=== PATIENT | female | born 1995 | race Caucasian/White ===

== ENCOUNTER 2020-03-07 19:21 | Emergency (ER) | payer OTHER ==
[2020-03-07 19:27] VITALS: TEMP 97; BMI 26.0
[2020-03-07] MEDS ORDERED: ACETAMINOPHEN 500 MG TABLET (FP) PO ONE (19:52)
--- NOTE | 2020-03-07 19:54 | PDOC ---
History of Present Illness - General History Source: Patient - History of Present Illness Timing/Duration: reports: other (yesterday) Quality: reports: moderate <David Trejo - Last Filed: 03/07/20 20:31> <Marivel Silverman Judy - Last Filed: 03/07/20 22:05> - General Chief Complaint: Pain Stated Complaint: ABD PAIN Time Seen by Provider: 03/07/20 19:42 Past History - Medical History COPD: No - Reproductive History Is Patient Now?: Yes - Psycho-Social/Smoking History Smoking History: Never smoked <David Trejo - Last Filed: 03/07/20 20:31> <Marivel Silverman - Last Filed: 03/07/20 22:05> - Medical History Allergies/Adverse Reactions: Allergies Allergy/AdvReac Type Severity Reaction Status Date / Time No Known Allergies Allergy Verified 03/07/20 19:27 Review of Systems - Review of Systems Constitutional: No: Chills, Fever ABD/GI: Yes: Abdominal cramping. No: Nausea, Vomiting : No: Dysuria, Flank Pain <David Trejo - Last Filed: 03/07/20 20:31> *Physical Exam - Vital Signs Last Vital Signs Temp Pulse Resp BP Pulse Ox 97 F L 85 18 106/52 L 100 03/07/20 19:23 03/07/20 19:23 03/07/20 19:23 03/07/20 19:23 03/07/20 19:23 - Physical Exam General Appearance: Yes: Appropriately Dressed, Mild Distress HEENT: positive: Normal Voice Neck: positive: Supple Respiratory/Chest: negative: Respiratory Distress Gastrointestinal/Abdominal: positive: Normal Bowel Sounds, Tender (poorly localized ttp to lower abd, NT over mcburneys), Soft. negative: Distended Musculoskeletal: negative: CVA Tenderness Integumentary: positive: Dry, Warm Neurologic: positive: Fully Oriented, Alert, Normal Mood/Affect <David Trejo - Last Filed: 03/07/20 20:31> - Vital Signs Last Vital Signs Temp Pulse Resp BP Pulse Ox 97 F L 85 18 106/52 L 100 03/07/20 19:23 03/07/20 19:23 03/07/20 19:23 03/07/20 19:23 03/07/20 19:23 <Marivel Silverman - Last Filed: 03/07/20 22:05> ED Treatment Course - RADIOLOGY Radiology Studies Ordered: Category Date Time Status TRANSVAGINAL US PREG [US] Stat Ultrasound 03/07/20 19:42 Ordered <David Trejo - Last Filed: 03/07/20 20:31> Medical Decision Making - Medical Decision Making 03/07/20 19:50 24 yo F, , tested + on home preg test yesterday, unsure how far along as irregular menses and last menses 01/18, here w/ lower abd cramps since last night, worsening today. No vag bleed, dysuria, n/v/f/c see exam 1st trimester pain R/o ectopic vs abd pain in nl , r/o UTI -ua/ucx -beta -US 03/07/20 20:[address] Silverman at this time <David Trejo - Last Filed: 03/07/20 20:31> - Medical Decision Making The patient was seen and evaluated in conjunction with midlevel provider under my direct supervision, ancillary studies were reviewed. I agree with the plan as outlined with DONALD Trejo. HPI, workup/dispo as outlined. VS reviewed, wnl. beta hcg 955, below discriminatory zone repeat beta in 2 days UA with some ketones, but does not appear dehydrated, donny PO intake. f/u urine culture prelim neg for infection TVUS to eval - early IUP, PUL? miscarriage? no bleeding, no txs or labs indicated discussed with patient the results, possibility of early vs ectopic vs PUL and follow up for beta check in 2-3 days. anticipate discharge, followup in 2 days for beta check, return precautions such as bleeding pt verbalized understanding of impression and plan 03/07/20 20:24 03/07/20 21:25 03/07/20 21:25 03/07/20 21:55 03/07/20 22:05 <Marivel Silverman - Last Filed: 03/07/20 22:05> Discharge <David Trejo - Last Filed: 03/07/20 20:31> - Discharge Information Problems reviewed: Yes - Admission No <Marivel Silverman - Last Filed: 03/07/20 22:05> - Discharge Information Clinical Impression/Diagnosis: Abdominal pain affecting Condition: Improved Disposition: HOME - Follow up/Referral [facility]errals: [facility] [Provider Group] Sandra De La Rosa MD [Staff Physician] - Lucie Chen MD [Staff Physician] - - Patient Discharge Instructions Patient Printed Discharge Instructions: DI for Abdominal Pain -- Early Additional Instructions: 1) Please follow-up with your primary care doctor in the next 1-2 days. Please call tomorrow for for any urgent issues. 2) You were given a copy of the tests performed today. Please bring the results with you and review them with your primary care doctor. Your laboratory / imaging results showed beta hcg (your number) at 955, this needs to rechecked in 2-3 days, you can go to welder/fitter or come to the ED Your ultrasound showed unknown location of /no definitive seen at this time but this is also potentially a very early . you need a beta check in 2-3 days to see where that is trending. 3) If you have any worsening of symptoms or any other concerns please return to the ED immediately. Return if worsening symptoms including fevers, headache, vomiting, visual or hearing disturbances, abdominal pain, vaginal bleeding, chest pain, shortness of breath, syncope, dehydration, inability to take things by mouth/vomiting, altered mental status, or worsening concerning symptoms. 4) Please continue taking your home medications as directed. follow up your urine culture for any infection no antibiotics indicated at this time Stay well hydrated and rest adequately. Make an appointment. If you cannot follow-up with your primary care doctor please return to the ED - Post Discharge Activity Work/Back to School Note: Back to Work
[2020-03-07] MEDS ORDERED: ACETAMINOPHEN 500 MG TABLET (FP) ONE (20:30)
[2020-03-07 20:34] LABS: PH,URINE 6.5 (5.0-8.0); URINE APPEARANCE CLEAR; URINE BILIRUBIN NEGATIVE (NEGATIVE); URINE COLOR YELLOW; URINE GLUCOSE (UA) NEGATIVE (NEGATIVE); URINE KETONE 4+ (NEGATIVE); URINE LEUK ESTERASE NEGATIVE (NEGATIVE); URINE NITRITE NEGATIVE (NEGATIVE); URINE PROTEIN TRACE (NEGATIVE)
[2020-03-07 20:50] LABS: HCG,QUALITATIVE URINE Positive
[2020-03-07 22:10] VITALS: BP 110/65; PULSE 86
== END 2020-03-07 22:13 | disposition home or self-care (01) ==
LOC: JER 19:21
DX: O26.899 Other specified pregnancy related conditions, unspecified trimester (principal); R10.9 Unspecified abdominal pain; Z3A.00 Weeks of gestation of pregnancy not specified
CPT/HCPCS: 36415; 76817-TC; 81003; 84702; 84703; 87086; 99285-25

== ENCOUNTER 2020-03-11 09:09 | Emergency (ER) | payer OTHER ==
[2020-03-11 09:16] VITALS: BP 100/48; PULSE 75; TEMP 98.1; BMI 24.0
--- NOTE | 2020-03-11 11:19 | PDOC ---
History of Present Illness - General Chief Complaint: Revisit, Lab Variance Stated Complaint: ABNORMAL LABS Time Seen by Provider: 03/11/20 09:29 History Source: Patient Exam Limitations: No Limitations - History of Present Illness Initial Comments: 03/11/20 11:14 Patient is a 24-year-old female who presents to the ED for a repeat beta-hCG after being seen in the emergency department on 03/07/2020 for lower abdominal pain and . The patient states that she has irregular periods and is unsure of when she got . There was an ultrasound performed on 03/07/2020 which did not see an IUP but was likely early . The patient has not had any vaginal bleeding. She states her lower abdominal pain has mostly resolved but she still feels slight pain. She states she has a follow-up TECHNOLOGY AUDITOR appointment on 03/20/2020. She denies any new complaints at this time. Past History - Medical History Allergies/Adverse Reactions: Allergies Allergy/AdvReac Type Severity Reaction Status Date / Time No Known Allergies Allergy Verified 03/11/20 09:13 COPD: No - Reproductive History Is Patient Now?: Yes - Immunization History Immunization Up to Date: No - Psycho-Social/Smoking History Smoking History: Former smoker Have you smoked in the past 12 months: Yes Information on smoking cessation initiated: No - Substance Abuse Hx (Audit-C & DAST Scrn) How often the patient has a drink containing alcohol: Never Score: In Men: 4 or > Positive; In Women: 3 or > Positive: 0 Screen Result (Pos requires Nsg. Audit-10AR): Negative In the last yr the pt used illegal drug/Rx for NonMed reason: No Score: Yes response is considered Positive: 0 Screen Result (Positive result requires Nsg. DAST-10): Negative Review of Systems - Review of Systems Comments:: 03/11/20 11:15 - Review of Systems Able to Perform ROS?: Yes Constitutional: No: Fever, Chills, Loss of Appetite, Night Sweats, Weakness; positive: Repeat beta-hCG HEENTM: No: Eye Pain, Vision changes, Ear Pain, Throat Pain, Throat Swelling, Mouth Pain, Difficulty Swallowing Respiratory: No: Cough, Shortness of Breath, Wheezing, Sputum Production Cardiac (ROS): No: Chest Pain, Chest Tightness, Palpitations, Irregular Heart Beat, Edema ABD/GI: No: Nausea, Vomiting, Abdominal Pain, Diarrhea : No Dysuria, No Hematuria, No Frequency, No Urgency, No Vaginal Discharge/Pain Musculoskeletal: No: Muscle Pain, Back Pain, Joint Pain, Muscle Weakness, Neck Pain Integumentary: No: Lesions, Rash Neurological: No: Headache, Numbness, Tingling, Weakness, Speech Difficulties *Physical Exam - Vital Signs Last Vital Signs Temp Pulse Resp BP Pulse Ox 98.1 F 75 18 100/48 L 100 03/11/20 09:14 03/11/20 09:14 03/11/20 09:14 03/11/20 09:14 03/11/20 09:14 - Physical Exam 03/11/20 11:16 - Physical Exam General Appearance: Nourished, Appropriately Dressed, No Distress HEENT: EOMI, Normal Voice, Hearing Grossly Normal Neck: Supple, No Lymphadenopathy (R), No Lymphadenopathy (L), No Rigidity, No Decreased range of motion Respiratory/Chest: Lungs Clear, Normal Breath Sounds. No Respiratory Distress, No Accessory Muscle Use Cardiovascular: Regular Rhythm, Regular Rate, S1, S2 Gastrointestinal/Abdominal: Normal Bowel Sounds, Soft. Non-tender, No Guarding, No Rebound, No Rigidity; no reproducible abdominal tenderness to palpation LUMBER STRAIGHTENER: Deferred as per patient request Musculoskeletal: Normal Inspection. No Decreased Range of Motion Extremity: Normal Capillary Refill, Normal Inspection Integumentary: Normal Color, Dry. No Rash Neurologic: console operator II-XII NML intact, Fully Oriented, Alert, Normal Mood/Affect, Normal Response ED Treatment Course - ADDITIONAL ORDERS Additional order review: Laboratory Results 03/11/20 09:42 Beta HCG, Quant 2315.6 03/11/20 11:16 Laboratory Tests 03/07/20 03/11/20 20:12 09:42 Beta HCG, Quant 955.3 2315.6 Medical Decision Making - Medical Decision Making 03/11/20 11:16 Assessment: Patient is a 24-year-old female who presents to the ED for a repeat beta-hCG. Plan: The patient has been made aware that her beta-hCG has appropriately gone up to 2304 days. This is slightly more than doubled as expected. The patient has a follow-up appointment with TECHNOLOGY AUDITOR on 03/20/2020 for further evaluation and treatment. She has been given strict return precautions such as severe abdominal pain, heavy vaginal bleeding, passing clots or tissue, or any other concerning symptoms. She understands and agrees with this treatment plan and she is stable for discharge. Discharge - Discharge Information Problems reviewed: Yes Clinical Impression/Diagnosis: Abdominal pain affecting Condition: Stable Disposition: HOME - Follow up/Referral - Patient Discharge Instructions Patient Printed Discharge Instructions: DI for Abdominal Pain -- Early Additional Instructions: Get plenty of rest and drink plenty of fluids. You should be on pelvic rest which means no heavy lifting, no strenuous activity and nothing in the vagina including sexual intercourse, tampons, douching until you are cleared by your TECHNOLOGY AUDITOR. Follow-up with your TECHNOLOGY AUDITOR as scheduled on 03/20/2020. Return to the emergency department for worsening abdominal pain, vaginal bleeding, passing blood clots or tissue, or any other concerning symptoms. - Post Discharge Activity
--- OUTSIDE RECORDS SUMMARY | 2020-03-11 11:50 | XMS ---
:1995 Author Organization [facility] Care Team Providers Name Role Phone U , SHANNAN Eisenberg MD Unavailable Unavailable ELIGIO FREEMAN, Deidra FREEMAN Unavailable Unavailable Re-disclosure Warning The records that you are about to access may contain information from federally- assisted alcohol or drug abuse programs. If such information is present, then the following federally mandated warning applies: This information has been disclosed to you from records protected by federal confidentiality rules (42 CFR part 2). The federal rules prohibit you from making any further disclosure of this information unless further disclosure is expressly permitted by the written consent of the person to whom it pertains or as otherwise permitted by 42 CFR part 2. A general authorization for the release of medical or other information is NOT sufficient for this purpose. The Federal rules restrict any use of the information to criminally investigate or prosecute any alcohol or drug abuse patient.The records that you are about to access may contain highly sensitive health information, the redisclosure of which is protected by Article 27-F of the [facility] Public Health law. If you continue you may haveaccess to information: Regarding HIV / AIDS; Provided by facilities licensed or operated by the [facility] Office of Mental Health; or Provided by the [facility] Office for People With Developmental Disabilities. If such information is present, then the following [facility] mandated warning applies: This information has been disclosed to you from confidential records which are protected by state law. State law prohibits you from making any further disclosure of this information without the specific written consent of the person to whom it pertains, or as otherwise permitted by law. Any unauthorized further disclosure in violation of state law may result in a fine or residential sentence or both. A general authorization for the release of medical or other information is NOT sufficient authorization for further disclosure. Allergies and Adverse Reactions Type Description Substance Reaction Status Data Source(s ) Drug allergy No Known Allergies No Known Allergies [facility] Encounters Encounter Providers Location Date Indications Data Source(s ) Emergency Attender: CONSTANZA 04/04/2019 DIZZY LIGHT HEADED [facility] ELIGIO MDAttender: 09:36:00 PM [facility] SHANNAN Rodrigues MD EDT - of [facility] 04/04/2019 11:45:00 PM EDT DIZZY LIGHT HEADED Patient discharged. Insurance Providers Payer name Policy type Policy ID Covered Covered republican's Policy P maty / Coverage republican ID relationship to Merchant Inf ormation type merchant CDP [id number] SP [id number] 00 [employer]IVERS[employer] CROSS [id number] COMMERCIAL 9 [employer] [id number] Problems, Conditions, and Diagnoses Code Display Name Description Problem Type Effective Dates Data Source(s) Z32.02 Encounter for ENCOUNTER FOR Diagnosis 04/04/2019 [facility] n test, TEST, 09:36:00 PM EDT [facility] result negative RESULT NEGATIVE Hosp ital of [facility] Z52.000 Unspecified UNSPECIFIED Diagnosis 04/04/2019 [facility] donor, whole DONOR, WHOLE 09:36:00 PM EDT [facility] D64.89 Other specified OTHER SPECIFIED Diagnosis 04/04/2019 [facility] udson anemias ANEMIAS 09:36:00 PM EDT [facility] R53.1 Weakness WEAKNESS Diagnosis 04/04/2019 [facility] 09:36:00 PM EDT [facility]
== END 2020-03-11 11:27 | disposition home or self-care (01) ==
LOC: JERFT 09:09
DX: R10.9 Unspecified abdominal pain (principal)
CPT/HCPCS: 36415; 84702; 99283-25

== ENCOUNTER 2020-03-18 00:39 | Emergency (ER) | payer OTHER ==
--- NOTE | 2020-03-18 01:02 | PDOC ---
History of Present Illness - General Chief Complaint: Vaginal Bleeding Stated Complaint: VAGINAL BLEEDING, 4 WKS History Source: Patient - History of Present Illness Initial Comments: 03/18/20 02:18 24 -year-old female complaining of vaginal spotting since this afternoon with left pelvic pain. Patient denies urinary symptoms, abdominal pain, nausea, vomiting, diarrhea, fever/chills. Patient reports that she was seen for similar episode a few weeks ago in this hospital Past History - Medical History Allergies/Adverse Reactions: Allergies Allergy/AdvReac Type Severity Reaction Status Date / Time No Known Allergies Allergy Verified 03/18/20 01:30 Home Medications: Ambulatory Orders Cephalexin Monohydrate [Keflex -] 500 mg PO BID #20 capsule 03/18/20 COPD: No - Immunization History Immunization Up to Date: No - Psycho-Social/Smoking History Smoking History: Former smoker Have you smoked in the past 12 months: Yes Review of Systems - Review of Systems Able to Perform ROS?: Yes Is the patient limited Martiniquais proficient: No : Yes: Other (vaginal bleeding) *Physical Exam - Vital Signs 03/18/20 02:24 Last Vital Signs Temp Pulse Resp BP Pulse Ox 98.1 F 81 18 109/57 L 98 03/18/20 00:40 03/18/20 00:40 03/18/20 00:40 03/18/20 00:40 03/18/20 00:40 - Physical Exam General Appearance: Yes: Appropriately Dressed Respiratory/Chest: positive: Lungs Clear, Normal Breath Sounds Female Pelvic Exam: positive: normal external exam, cervical os closed, other (brown vaginal discharge) Gastrointestinal/Abdominal: positive: Normal Bowel Sounds, Soft. negative: Tender Musculoskeletal: positive: Normal Inspection. negative: CVA Tenderness Extremity: positive: Normal Capillary Refill, Normal Inspection, Normal Range of Motion Integumentary: positive: Normal Color, Dry, Warm Neurologic: positive: Fully Oriented, Alert, Normal Mood/Affect ED Treatment Course - LABORATORY CBC & Chemistry Diagram: 03/18/20 01:47 - RADIOLOGY Radiology Studies Ordered: Category Date Time Status TRANSVAGINAL US PREG [US] Stat Ultrasound 03/18/20 01:01 Ordered ED Progress Note - Progress Note Progress Note: 03/18/20 02:25 A: vaginal bleeding in early threatened Ab; uti P: cbc beta hcg ua tvus type and screen 1 cephalexin Discharge - Discharge Information Problems reviewed: Yes Clinical Impression/Diagnosis: Threatened in early UTI (urinary tract infection) Qualifiers: Urinary tract infection type: acute cystitis Hematuria presence: without hematuria Qualified Code(s): N30.00 - Acute cystitis without hematuria Condition: Fair - Additional Discharge Information Prescriptions: Cephalexin Monohydrate [Keflex -] 500 mg PO BID #20 capsule - Follow up/Referral - Patient Discharge Instructions Patient Printed Discharge Instructions: DI for Vaginal Bleeding Additional Instructions: Return to the ER if you are soaking 2 pads per hour, severe abdominal pain, or worsening symptoms. Increase fluids Please return to emergency department any increased pain, inability to void, i ncreased bleeding, back pain, fever or other concerns. Please follow up at the primary care Dr. symptoms persist in 2 days Take cephalexin as prescribed Drink plenty of fluids follow-up with your DIRECTOR OF COMMUNICATIONS as soon as possible - Post Discharge Activity Work/Back to School Note: Back to Work
--- OUTSIDE RECORDS SUMMARY | 2020-03-18 01:11 | XMS ---
:1995 Author Organization [facility] Care Team Providers Name Role Phone ELIGIO FREEMAN, CONSTANZA Gay MD Unavailable Unavailable U Adithya FREEMAN MD Unavailable Unavailable Re-disclosure Warning The records that [...] is protected by Article 27-F of the [facility] Public Health law. If you continue you may haveaccess to information: Regarding HIV / AIDS; Provided by facilities licensed or operated by the [facility] Office of Mental Health; or Provided by the [facility] Office for People With Developmental Disabilities. If such information is present, then the following [facility] mandated warning applies: This information has [...] law may result in a fine or fdc sentence or both. A general authorization for the release of medical or other information is NOT sufficient authorization for further disclosure. Allergies and Adverse Reactions Type Description Substance Reaction Status Data Source(s ) Drug allergy No Known Allergies No Known Allergies [facility] Encounters Encounter Providers Location Date Indications Data Source(s ) Emergency Attender: CONSTANZA 04/04/2019 DIZZY LIGHT HEADED [facility] ELIGIO MDAttender: 09:36:[address] [facility] SHANNAN Rodrigues MD EDT - [facility] 04/04/2019 11:45:00 PM EDT DIZZY LIGHT HEADED Patient discharged. Insurance Providers Payer name Policy type Policy ID Covered Covered republican's Policy P maty / Coverage republican ID relationship to Merchant Inf ormation type merchnat CDPHP [id number] SP [id number] 00 UNIVERSAL 0 [employer] CROSS [id number] COMMERCIAL 9 [employer] [id number] Problems, Conditions, and Diagnoses Code Display Name Description Problem Type Effective Dates Data Source(s) Z32.02 Encounter for ENCOUNTER FOR Diagnosis 04/04/2019 [facility] [place] [facility] n test, TEST, 09:36:00 PM EDT [facility] result negative RESULT NEGATIVE Hosp ital [facility] Z52.000 Unspecified UNSPECIFIED Diagnosis 04/04/2019 [facility] donor, whole DONOR, WHOLE 09:36:[address] [facility] D64.89 Other specified OTHER SPECIFIED Diagnosis 04/04/2019 [facility] udson anemias ANEMIAS 09:36:00 PM EDT [facility] R53.1 Weakness WEAKNESS Diagnosis 04/04/2019 [facility] 09:36:00 PM EDT [facility]
[2020-03-18 01:30] VITALS: BP 109/57; PULSE 81; TEMP 98.1; BMI 25.7
[2020-03-18 01:59] LABS: EPI CELLS >36 /uL (0-25.1); HYALINE CASTS 14 /uL (0-3.1); PH,URINE 5.5 (5.0-8.0); URINE APPEARANCE CLOUDY; URINE BACTERIA 7709 /uL (0-1359); URINE BILIRUBIN NEGATIVE (NEGATIVE); URINE COLOR YELLOW; URINE GLUCOSE (UA) NEGATIVE (NEGATIVE); URINE KETONE NEGATIVE (NEGATIVE); URINE LEUK ESTERASE 2+ (NEGATIVE); URINE NITRITE NEGATIVE (NEGATIVE); URINE PROTEIN NEGATIVE (NEGATIVE); URINE RBC 22 /uL (0-23.9); URINE UROBILINOGEN 0.2 mg/dL (0.2-1.0); URINE WBC 201 /uL (0-25.8)
[2020-03-18 02:18] LABS: BASO % 0.6 % (0-2.0); EOS % 0.3 % (0-4.5); HEMATOCRIT 37.4 % (32.4-45.2); HEMOGLOBIN 13.3 GM/dL (10.7-15.3); LYMPH % 27.5 % (8-40); MCH 30.6 pg (25.7-33.7); MCHC 35.5 g/dl (32.0-36.0); MEAN CELL VOLUME 86.2 fl (80-96); MEAN PLT VOLUME 8.2 fl (7.5-11.1); NEUT % 64.6 % (42.8-82.8); PLATELET COUNT 277 K/MM3 (134-434); RBC 4.34 M/mm3 (3.60-5.2); RDW 13.6 % (11.6-15.6); WHITE BLOOD COUNT 8.3 K/mm3 (4.0-10.0)
== END 2020-03-18 04:42 ==
LOC: JER 00:39
DX: O20.0 Threatened abortion (principal); N30.00 Acute cystitis without hematuria; Z3A.01 Less than 8 weeks gestation of pregnancy
CPT/HCPCS: 36415; 76817-TC; 81003; 84702; 85025; 86850; 86900; 86901; 99284-25

== ENCOUNTER 2020-03-26 17:54 | Emergency (ER) | payer OTHER ==
--- NOTE | 2020-03-26 18:03 | PDOC ---
Rapid Medical Evaluation Time Seen by Provider: 03/26/20 18:01 Medical Evaluation: Allergies Allergy/AdvReac Type Severity Reaction Status Date / Time No Known Allergies Allergy Verified 03/18/20 01:30 03/26/20 18:02 I have performed a brief in person evaluation of this patient. CC: PVB LMP-01/29; - sono with probable IUP 03/18 PE: deferred Orders: labs, urine, TVUS Patient will proceed to ED for further evaluation. 03/26/20 18:04 Discharge Disposition - Diagnosis Threatened in early - Referrals - Patient Instructions - Post Discharge Activity
[2020-03-26 18:11] VITALS: TEMP 98.6; BMI 23.6
--- OUTSIDE RECORDS SUMMARY | 2020-03-26 18:12 | XMS ---
:1995 Author Organization [facility] Care Team Providers Name Role Phone ELIGIO FREEMAN, CONSTANZA Gay MD Unavailable Unavailable Elgin CASAS MD, MD Unavailable Unavailable Re-disclosure Warning The records [...] is protected by Article 27-F of the [facility] Public Health law. If you continue you may haveaccess to information: Regarding HIV / AIDS; Provided by facilities licensed or operated by the [facility] Office of Mental Health; or Provided by the [facility] Office for People With Developmental Disabilities. If such information is present, then the following [facility] mandated warning applies: This information has been [...] law may result in a fine or correction sentence or both. A general authorization for the release of medical or other information is NOT sufficient authorization for further disclosure. Allergies and Adverse Reactions Type Description Substance Reaction Status Data Source(s ) Drug allergy No Known Allergies No Known Allergies [facility] Encounters Encounter Providers Location Date Indications Data Source(s ) Emergency Attender: CONSTANZA 04/04/2019 DIZZY LIGHT HEADED [facility] ELIGIO MDAttender: 09:36:00 PM [facility] FEI CASAS MD EDT - of [facility] 04/04/2019 11:45:00 PM EDT DIZZY LIGHT HEADED Patient discharged. Insurance Providers Payer name Policy type Policy ID Covered Covered libertarian's Policy P maty / Coverage libertarian ID relationship to Merchant Inf ormation type merchant CDPHP [id number] SP [id number] [employer] CDPHP [id number] SP [id number] 00 [employer]IVERSAL 0 [employer] BLUE CROSS [id number] COMMERCIAL 9 [employer] [id number] Problems, Conditions, and Diagnoses Code Display Name Description Problem Type Effective Dates Data Source(s) Z32.02 Encounter for ENCOUNTER FOR Diagnosis 04/04/2019 [facility] [place] test, TEST, 09:36:00 PM EDT [facility] result negative RESULT NEGATIVE Hosp ital [facility] Z52.000 Unspecified UNSPECIFIED Diagnosis 04/04/2019 [facility] donor, whole DONOR, WHOLE 09:36:00 PM EDT [facility] D64.89 Other specified OTHER SPECIFIED Diagnosis 04/04/2019 [facility] udson anemias ANEMIAS 09:36:00 PM EDT [facility] R53.1 Weakness WEAKNESS Diagnosis 04/04/2019 [facility] 09:36:00 PM EDT [facility]
--- NOTE | 2020-03-26 19:21 | PDOC ---
History of Present Illness - General Chief Complaint: Vaginal Bleeding Stated Complaint: VAGIINAL BLEEDING (6 WEKS ) Time Seen by Provider: 03/26/20 18:01 - History of Present Illness Initial Comments: 24 F G2A1P0 6 weeks 2 days presented here for vaginal bleeding. Patient had regular visit with her OBGYN at [address] [place] [address]. Last visit was yesterday where she was told she was 6 weeks and 2 days. result of ultrasound was similar to the last week ultrasound= Blighted ovum. She was told that it was normal to have brown vaginal bleeding which happened yesterday. 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 That's why she is here. Her next ultrasound with obgyn is on Tuesday. She has no abdominal pain, nausea, vomiting, fever, chill, chest pain, vaginal discharge. She only had minimal spotting. PMHX: as in HPI PSHX: . Meds: prenantal. Allergies: none Tob:none Etoh: none Rec drugs:none Obgyn: live from [address] [place] [address]. [employer]: AN GENERAL/CONSTITUTIONAL: No fever or chills. No weakness. HEAD, EYES, EARS, NOSE AND THROAT: No change in vision. No ear pain or discharge. No sore throat. CARDIOVASCULAR: No chest pain or shortness of breath RESPIRATORY: No cough, wheezing, or hemoptysis. GASTROINTESTINAL: No nausea, vomiting, diarrhea or constipation. GENITOURINARY: No dysuria, frequency, or change in urination. MUSCULOSKELETAL: No joint or muscle swelling or pain. No neck or back pain. SKIN: No rash NEUROLOGIC: No headache, vertigo, loss of consciousness, or change in strength/sensation. ENDOCRINE: No increased thirst. No abnormal weight change HEMATOLOGIC/LYMPHATIC: No anemia, easy bleeding, or history of blood clots. ALLERGIC/IMMUNOLOGIC: No hives or skin allergy. PE GENERAL: Awake, alert, and fully oriented, in no acute distress HEAD: No signs of trauma, normocephalic, atraumatic EYES: PERRLA, EOMI, sclera anicteric, conjunctiva clear ENT: Auricles normal inspection, hearing grossly normal, nares patent, oropharynx clear without exudates. Moist mucosa NECK: Normal ROM, supple, no lymphadenopathy, JVD, or masses LUNGS: No distress, speaks full sentences, clear to auscultation bilaterally HEART: Regular rate and rhythm, normal S1 and S2, no murmurs, rubs or gallops, peripheral pulses normal and equal bilaterally. ABDOMEN: Soft, nontender, normoactive bowel sounds. No guarding, no rebound. No masses EXTREMITIES : Normal inspection, Normal range of motion, no edema. No clubbing or cyanosis. NEUROLOGICAL: Cranial nerves II through XII grossly intact. Normal speech, normal gait, no focal sensorimotor deficits SKIN: Warm, Dry, normal turgor, no rashes or lesions noted 03/26/20 21:09 03/26/20 21:10 Past History - Medical History Allergies/Adverse Reactions: Allergies Allergy/AdvReac Type Severity Reaction Status Date / Time No Known Allergies Allergy Verified 03/18/20 01:30 Home Medications: Ambulatory Orders Cephalexin Monohydrate [Keflex -] 500 mg PO BID #20 capsule 03/18/20 Cephalexin [Keflex] 500 mg PO BID 7 Days #14 capsule 03/26/20 COPD: No - Reproductive History Is Patient Now?: No (#): 2 Para: 0 Cervical CA: No Dysfunctional Uterine Bleeding: No Ectopic : No Endometrial CA: No Polycystic Ovaries: No Tubal Ligation: No - Immunization History Td Vaccination: Yes TDAP Vaccination: Yes Immunization Up to Date: No - Psycho-Social/Smoking History Smoking History: Never smoked Have you smoked in the past 12 months: No Information on smoking cessation initiated: No - Substance Abuse Hx (Audit-C & DAST Scrn) How often the patient has a drink containing alcohol: Never Score: In Men: 4 or > Positive; In Women: 3 or > Positive: 0 Screen Result (Pos requires Nsg. Audit-10AR): Negative In the last yr the pt used illegal drug/Rx for NonMed reason: No Score: Yes response is considered Positive: 0 Screen Result (Positive result requires Nsg. DAST-10): Negative *Physical Exam - Vital Signs Last Vital Signs Temp Pulse Resp BP Pulse Ox 98.6 F 91 H 18 98/50 L 100 03/26/20 18:02 03/26/20 18:02 03/26/20 18:02 03/26/20 18:02 03/26/20 18:02 ED Treatment Course - LABORATORY CBC & Chemistry Diagram: 03/26/20 18:55 03/26/20 18:55 Medical Decision Making - Medical Decision Making 03/26/20 20:41. 24 F G2A1P0 6 weeks 2 days presented here for vaginal spotting. CBC CMP, Beta quant, trasvaginal ultrasound, UA Blood work is nonconcerning. New Beta quant today is [id number], last week was 7000s. Ultrasouns showed 1.2 cm fluid structure within hte endometrial canal as previous exam on 03/18. Blighted ovum/anembryonic gestation vs pseudogestational sac associated with extopic . No Gross adnexal pathology is seen. 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 03/26/20 20:57 Dr. De La Rosa obgyn tonguer recommened her to go home follow up with obgyn on 2 for further management. She is hemodynamically stable. Antibiotics is sent to her preferred pharmacy. 03/26/20 21:09 Discharge - Discharge Information Problems reviewed: Yes Clinical Impression/Diagnosis: Threatened in early , Vaginal bleeding during Condition: Good Disposition: HOME - Additional Discharge Information Prescriptions: Cephalexin [Keflex] 500 mg PO BID 7 Days #14 capsule - Follow up/Referral - Patient Discharge Instructions Additional Instructions: You were seen in the ED for complaints of vaginal bleeding during early trimester. In the ED you were evaluated with blood work , urine work and ultrasound. Your results were communicated with you . The ultrasound copy is given to you. Please follow up with your obgyn for further management for the blighted ovum. There does not appear to be an acute need for immediate hospitalization. You are advised to follow up with your Obgyn within 1 week. You were given a prescription for antibiotics. Please take it. Return to the ED immediately if you experience worsening pain or new symptoms. - Post Discharge Activity
[2020-03-26 19:24] LABS: BASO % 0.6 % (0-2.0); EOS % 0.9 % (0-4.5); HEMATOCRIT 37.4 % (32.4-45.2); LYMPH % 30.5 % (8-40); MCH 30.1 pg (25.7-33.7); MCHC 34.7 g/dl (32.0-36.0); MEAN CELL VOLUME 86.9 fl (80-96); MEAN PLT VOLUME 8.1 fl (7.5-11.1); MONO % 7.3 % (3.8-10.2); NEUT % 60.7 % (42.8-82.8); PLATELET COUNT 300 K/MM3 (134-434); RBC 4.31 M/mm3 (3.60-5.2); RDW 13.3 % (11.6-15.6); WHITE BLOOD COUNT 7.5 K/mm3 (4.0-10.0)
[2020-03-26 19:35] LABS: EPI CELLS 22 /uL (0-25.1); HYALINE CASTS 0 /uL (0-3.1); URINE APPEARANCE CLEAR; URINE BACTERIA 768 /uL (0-1359); URINE BILIRUBIN NEGATIVE (NEGATIVE); URINE COLOR YELLOW; URINE GLUCOSE (UA) NEGATIVE (NEGATIVE); URINE KETONE NEGATIVE (NEGATIVE); URINE LEUK ESTERASE TRACE (NEGATIVE); URINE NITRITE NEGATIVE (NEGATIVE); URINE PROTEIN NEGATIVE (NEGATIVE); URINE RBC 2 /uL (0-23.9); URINE WBC 10 /uL (0-25.8)
[2020-03-26 19:40] LABS: POTASSIUM 3.9 mmol/L (3.5-5.1)
[2020-03-26 19:41] LABS: CALCIUM 8.8 mg/dL (8.5-10.1)
[2020-03-26 19:42] LABS: BLOOD UREA NITROGEN 8.7 mg/dL (7-18)
[2020-03-26 19:45] LABS: CREATININE 0.6 mg/dL (0.55-1.3)
--- NOTE | 2020-03-26 20:05 | PDOC ---
Documentation entered by Amy Avila SCRIBE, acting as scribe for Traci Edouard DO. Traci Edouard DO: This documentation has been prepared by the peggye, Amy Avila SCRIBE, under my direction and personally reviewed by me in its entirety. I confirm that the documentation accurately reflects all work, treatment, procedures, and medical decision making performed by me. Attending Attestation - Resident Resident Name: RenBryceJony - ED Attending Attestation I have performed the following: I have examined & evaluated the patient, The case was reviewed & discussed with the resident, I agree w/resident's findings & plan, Exceptions are as noted - HPI HPI: 03/26/20 19:07 Patient is a 24 year old 6 weeks female with a significant past medical history of a previous , who presents to the ED with vaginal bleeding. Patient had a visit with her OBGYN yesterday and was told that having brown vaginal bleeding is normal. However, today when she used the toilet, she noticed that her vaginal bleeding was a coil shaper color and became concerned which prompted her ED arrival. Patient denies: fever, chills, nausea, vomiting, chest pain, abdominal pain, abnormal vaginal discharge, or any other related symptoms. Allergies: NKDA - Physicial Exam PE: 03/26/20 19:55 Gen: aaox3, nad, ambulatory with a steady gait in the er heart: +s1s2 reg lungs: cta b/l abd: soft, nt/nd +bs gu: os closed, light brown discharge, no active bleeding, no cmt or adnexal ttp ext: no c/c/e - Medical Decision Making 03/26/20 20:03 a/p: 24yo at around 6 weeks gestation with vaginal bleeding/spotting -will send labs, tvus, type and screen -beta -os closed -concern for bleeding in the first trimester -pt is nontoxic in appearance -will monitor and reassess 03/26/20 20:44 beta increasing L ovarian cyst, no iup visualized given increasing beta and no iup call 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 De La Rosa who recommends outpt follow up with [facility]IC[facility] SALES ACCOUNT MANAGER clinic will treat uti stable for dc to home Discharge - Discharge Information Problems reviewed: Yes Clinical Impression/Diagnosis: Threatened in early , Vaginal bleeding during Condition: Good Disposition: HOME - Admission No - Additional Discharge Information Prescriptions: Cephalexin [Keflex] 500 mg PO BID 7 Days #14 capsule - Follow up/Referral - Patient Discharge Instructions Additional Instructions: You were seen in the ED for complaints of vaginal bleeding during early trimester. In the ED you were evaluated with blood work , urine work and ultrasound. Your results were communicated with you . The ultrasound copy is given to you. Please follow up with your obgyn for further management for the blighted ovum. There does not appear to be an acute need for immediate hospitalization. You are advised to follow up with your Obgyn within 1 week. You were given a prescription for antibiotics. Please take it. Return to the ED immediately if you experience worsening pain or new symptoms. - Post Discharge Activity
[2020-03-26 21:30] VITALS: BP 92/50; PULSE 84
== END 2020-03-26 21:30 | disposition home or self-care (01) ==
LOC: JER 17:54
DX: O20.0 Threatened abortion (principal)
CPT/HCPCS: 36415; 76817-TC; 80048; 81003; 84702; 85025; 86850; 86900; 86901; 87086; 99284-25

== ENCOUNTER 2020-12-02 23:07 | Emergency (ER) | payer OTHER ==
[2020-12-02 23:17] VITALS: TEMP 98.1; BMI 23.6
[2020-12-03 00:58] VITALS: BP 87/60; PULSE 79
== END 2020-12-03 01:40 | disposition home or self-care (01) ==
LOC: JER 23:07
DX: O26.893 Other specified pregnancy related conditions, third trimester (principal); R10.9 Unspecified abdominal pain; Z3A.27 27 weeks gestation of pregnancy
CPT/HCPCS: 99281-25

== ENCOUNTER 2024-03-30 22:19 | Emergency (ER) | payer OTHER ==
[2024-03-30 22:27] VITALS: BMI 24.2
[2024-03-31 00:28] LABS: URINE APPEARANCE CLOUDY; URINE BILIRUBIN NEGATIVE (NEGATIVE); URINE COLOR YELLOW; URINE GLUCOSE (UA) NEGATIVE (NEGATIVE); URINE KETONE NEGATIVE (NEGATIVE); URINE LEUK ESTERASE NEGATIVE (NEGATIVE); URINE NITRITE NEGATIVE (NEGATIVE); URINE PROTEIN NEGATIVE (NEGATIVE)
[2024-03-31 00:30] LABS: BASO % 0.7 % (0-2.0); EOS % 0.9 % (0-4.5); HEMATOCRIT 41.2 % (32.4-45.2); LYMPH % 39.1 % (8-40); MCH 29.4 pg (25.7-33.7); MEAN CELL VOLUME 86.7 fl (80-96); MEAN PLT VOLUME 7.6 fl (7.5-11.1); MONO % 5.2 % (3.8-10.2); NEUT % 54.1 % (42.8-82.8); PLATELET COUNT 283 10^3/uL (134-434); RBC 4.75 M/mm3 (3.60-5.2); RDW 12.8 % (11.6-15.6); WHITE BLOOD COUNT 6.8 K/mm3 (4.0-10.0)
[2024-03-31 00:58] LABS: CALCIUM 8.7 mg/dL (8.5-10.1)
[2024-03-31 00:59] LABS: BLOOD UREA NITROGEN 7.5 mg/dL (7-18)
[2024-03-31 01:02] LABS: CREATININE 0.6 mg/dL (0.55-1.3)
[2024-03-31 01:04] LABS: BILIRUBIN,TOTAL 0.8 mg/dL (0.2-1); TOT PROT 7.3 g/dl (6.4-8.2)
[2024-03-31 02:03] LABS: PROTHROMBIN TIME (PATIENT) 11.5 SEC (9.7-13.0)
[2024-03-31 02:06] LABS: ACTIVATED PTT 30.5 SECONDS (25.2-36.5)
[2024-03-31 03:18] LABS: HIV INTERPRETATION NEGATIVE (NEGATIVE)
[2024-03-31 04:59] VITALS: BP 106/61; PULSE 79; RESP 16; TEMP 98.5
== END 2024-03-31 05:15 | disposition home or self-care (01) ==
LOC: JER 22:19
DX: G89.18 Other acute postprocedural pain (principal); R10.33 Periumbilical pain
CPT/HCPCS: 36415; 74177-TC; 80053; 81003; 84703; 85025; 85610; 85730; 86803; 87086; 87389; 99285-25; Q9967